=== PATIENT | female | born 1935 | race Caucasian/White ===

== ENCOUNTER 2016-08-04 10:01 | Inpatient (IN) ==
--- NOTE | 2016-08-04 10:14 | Emergency Department Note ---
Disposition Clinical Impression: Confusion, Frail elderly, History of intracranial hemorrhage, HTN (hypertension ), CAD (coronary artery disease), CVA (cerebral vascular accident), Cerebrovascular disease, Abnormal EKG, Diabetes Disposition: Admitted As Inpatient Referrals: Hayes Gupta MD [Primary Care Provider] - General Adult HPI - General Chief complaint: ED Neuro Symptoms/Deficit Stated complaint: L SIDED WEAKNESS Time Seen by Provider: 08/04/16 10:08 Source: EMS Limitations: no limitations - History of Present Illness HPI Narrative: 80-year-old female reports emergency department via EMS, per the family members the patient was doing fine this morning up until about 8 AM, the family noticed the patient walked into another room and came back and she seems somewhat confused was unsteady in her gait and complained of visual problems. EMS was notified, and her symptoms seemed to resolve on EMS arrival. They report the patient was mentally clear and appeared to be doing well. En route the patient developed slurred speech and then had left upper extremity weakness which reportedly resolved as well. There are reports of a headache. The patient has a history of intracranial bleeding, this was about one year ago, she had another event after she was placed on aspirin so they had discontinue antiplatelet therapy. The patient has a history of true fibrillation and coronary artery disease There is no history of fall or seizure-like activity. Accu-Chek was 159. No chest pain or shortness of breath no abdominal pain vomiting or diarrhea. There is no history of antecedent concern. The patient was reportedly in her usual of health prior to the event. The patient does have a history of intracranial bleeding. Per EMS, the patient's mental status is usually normative at baseline. Pain Scale: 0 - Related Data Home Medications Medication Instructions Recorded Confirmed Amlodipine Besylate/Benazepril 1 each PO DAILY 01/04/15 01/04/15 [Lotrel 10-20 mg Capsule] Atenolol [Tenormin] 50 mg PO DAILY 01/04/15 01/04/15 Calcium Carbonate/Vitamin D3 1 each PO DAILY 01/04/15 01/04/15 [Calcium 500-Vit D3 400 Tablet] Celecoxib [Celebrex] 200 mg PO DAILY 01/04/15 01/04/15 Multivits,Ca,Minerals/Iron/FA 1 each PO DAILY 01/04/15 01/04/15 [Women's Daily Formula Caplet] Rosuvastatin [Crestor] 10 mg PO HS 01/04/15 01/04/15 Allergies Allergy/AdvReac Type Severity Reaction Status Date / Time No Known Allergies Allergy Verified 08/04/16 10:03 All systems ED: reviewed and negative except as stated. Past Medical History - Past Medical History Medical history: Reports: arthritis, cancer, coronary artery disease, CVA, diabetes, hyperlipidemia, hypertension, myocardial infarction, osteoporosis, other Surgical history: Reports: breast surgery Psychiatric history: Reports: no psych history MORNING NEWS ANCHOR history: Reports: no MORNING NEWS ANCHOR history - Social History Smoking Status: Never smoker Smokeless Tobacco Status: No Alcohol use: Reports: none Drug use: Reports: none Physical Exam - General Limitations: no limitations General appearance: alert, in no apparent distress - Head Head exam: atraumatic, normocephalic, normal inspection - Eye Eye exam: Present: normal appearance, PERRL, EOMI. Absent: scleral icterus, conjunctival injection, miosis, mydriasis - ENT ENT exam: normal exam, normal oropharynx, mucous membranes moist, TM's normal bilaterally, normal external ear exam - Neck Neck exam: Present: normal inspection, full ROM, trachea midline. Absent: tenderness - Chest Chest inspection: Present: normal inspection, symmetric chest wall rise. Absent : tenderness - Respiratory Respiratory exam: Present: normal lung sounds bilaterally, respiratory distress. Absent: wheezes - Cardiovascular Cardiovascular exam: Present: regular rate, normal rhythm, normal heart sounds - Abdominal Exam Abdominal exam: Present: soft, Non-Tender, normal bowel sounds. Absent: tenderness, distention, guarding, rebound, rigidity - Extremities Exam Extremities exam: Present: normal inspection, full ROM, normal capillary refill. Absent: tenderness, pedal edema, joint swelling, calf tenderness - Expanded Lower Extremity Exam Neurovascular/Tendon exam: Present: normal capillary refill. Absent: motor deficit, sensory deficit, tendon deficit, extremity cold to touch, pallor - Back Exam Back exam: Present: normal inspection, full ROM. Absent: tenderness, CVA tenderness (L), vertebral tenderness - Neurological Exam Neurological exam: Present: alert, CN II-XII intact, other (The patient is alert but seems to be slightly confused. She is able to follow basic commands. She answers basic questions as well.). Absent: motor sensory deficit - Psychiatric Psychiatric exam: Present: normal affect, normal mood - Skin Skin exam: Present: warm, dry, intact, normal color. Absent: rash, cyanosis, diaphoresis, erythema, pallor, mottled, other Course - Reevaluation(s) Reevaluation #1: A stroke alert was initiated. [facility] was notified. Reevaluation #2: Tele-stroke conferencing with Dr. Ram, [facility], minor ischemic stroke, no TPA, admit, MRI, manage at this facility vs [facility]/no difference in management, Family comfortable with plan as stay at [facility]. Reevaluation #3: I spoke with the [facility] neurologist on-call Dr. Luna, who will act as digital media sales consultant, and recommended medical admission with low-dose baby aspirin. Vital Signs Temperature 98.6 F 08/04/16 10:04 Pulse Rate 65 08/04/16 10:04 Respiratory Rate 18 08/04/16 10:04 Blood Pressure 131/92 08/04/16 10:04 O2 Sat by Pulse Oximetry 98 08/04/16 10:04 Temperature 98.6 F 08/04/16 10:04 Pulse Rate 65 08/04/16 10:04 Respiratory Rate 18 08/04/16 10:04 Blood Pressure 131/92 08/04/16 10:04 O2 Sat by Pulse Oximetry 98 08/04/16 10:04 Oxygen Delivery Oxygen Delivery Room Air Medical Decision Making - MDM Narrative Medical decision making narrative: The patient seems to have had recurrent neurologic symptoms this morning. In the ED she had some left visual field defects, her CT head was negative, [facility] was consulted, Dr. Ram, feels the patient has had a minor stroke, the neurologist recommendations were for admission and MRI, here versus [facility], no aggressive therapy, the patient and family are fine staying here. No TPA or other aggressive therapy is recommended. I spoke with our neurologist here Dr. Luna who will act as digital media sales consultant, I consulted with our hospitalist on-call Dr. Aguirre who is accepted the patient to their care. The patient has a history of intracranial hemorrhage from anticoagulation the past, I reviewed this with our neurologist, low-dose aspirin was recommended, 81 mg, this was ordered. The patient is currently stable pending admission to the hospital. Family members agreeable with plan. - Lab Data Lab results reviewed: Yes I reviewed the patient's lab results. Result diagrams: 08/04/16 10:00 08/04/16 10:00 Lab Results 08/04/16 08/04/16 08/04/16 Range/Units 10:00 10:00 10:00 WBC 7.2 (4.3-11.1) K/mcL RBC 4.72 (3.82-4.97) M/mcL Hgb 13.8 (11.5-15.4) g/dL Hct 41.6 (35.3-44.9) % MCV 88.1 (83.0-100.0) fL MCH 29.2 (28.0-33.3) pg MCHC 33.2 (31.6-35.5) g/dL RDW 12.4 (11.5-14.5) % Plt Count 151 (140-400) K/mcL MPV 10.7 (9.4-12.4) fL Immature Gran % 0.3 (0-4) % Seg Neutrophils % 58.6 % Lymphocytes % 26.2 % Monocytes % 9.7 % Eosinophils % 4.2 % Basophils % 1.0 % Neutrophils # 4.2 (1.6-8.9) K/mcL Lymphocytes # 1.9 (0.6-4.6) K/mcL Monocytes # 0.7 (0.0-1.3) K/mcL Eosinophils # 0.3 (0.0-0.6) K/mcL Basophils # 0.1 (0.0-0.2) K/mcL PT 11.3 (9.4-12.1) Seconds INR 1.0 APTT 32.2 (26.0-36.0) Seconds Sodium 137 (136-145) mEq/L Potassium 4.4 (3.5-4.5) mEq/L Chloride 103 (98-109) mEq/L Carbon Dioxide 24 (19-29) mEq/L BUN 12 (7-20) mg/dL Creatinine 0.89 (0.57-1.11) mg/dL Est GFR ( Amer) > 60 (> 60) Est GFR (Non-Af Amer) > 60 (> 60) BUN/Creatinine Ratio 13 (6-26) Glucose 162 H (70-99) mg/dL Calculated Osmolality 287 (280-300) Lactic Acid (0.5-2.2) mmol/L Calcium 10.0 (8.6-10.8) mg/dL Total Bilirubin 0.6 (0.2-1.2) mg/dL Direct Bilirubin 0.2 (0.0-0.5) mg/dL Indirect Bilirubin 0.4 (0.0-1.2) mg/dL AST 19 (5-34) Units/L ALT 18 (0-55) Units/L Alkaline Phosphatase 59 (38-126) Units/L Troponin I (0-0.03) ng/mL C-Reactive Protein 3 (Less than 5) mg/L Serum Total Protein 7.8 (6.0-8.3) g/dL Albumin 4.0 (3.5-5.0) g/dL Globulin 3.8 H (2.4-3.5) g/dL Albumin/Globulin Ratio 1.1 (1.1-2.2) 08/04/16 08/04/16 Range/Units 10:00 10:57 WBC (4.3-11.1) K/mcL RBC (3.82-4.97) M/mcL Hgb (11.5-15.4) g/dL Hct (35.3-44.9) % MCV (83.0-100.0) fL MCH (28.0-33.3) pg MCHC (31.6-35.5) g/dL RDW (11.5-14.5) % Plt Count (140-400) K/mcL MPV (9.4-12.4) fL Immature Gran % (0-4) % Seg Neutrophils % % Lymphocytes % % Monocytes % % Eosinophils % % Basophils % % Neutrophils # (1.6-8.9) K/mcL Lymphocytes # (0.6-4.6) K/mcL Monocytes # (0.0-1.3) K/mcL Eosinophils # (0.0-0.6) K/mcL Basophils # (0.0-0.2) K/mcL PT (9.4-12.1) Seconds INR APTT (26.0-36.0) Seconds Sodium (136-145) mEq/L Potassium (3.5-4.5) mEq/L Chloride (98-109) mEq/L Carbon Dioxide (19-29) mEq/L BUN (7-20) mg/dL Creatinine (0.57-1.11) mg/dL Est GFR ( Amer) (> 60) Est GFR (Non-Af Amer) (> 60) BUN/Creatinine Ratio (6-26) Glucose (70-99) mg/dL Calculated Osmolality (280-300) Lactic Acid 1.5 (0.5-2.2) mmol/L Calcium (8.6-10.8) mg/dL Total Bilirubin (0.2-1.2) mg/dL Direct Bilirubin (0.0-0.5) mg/dL Indirect Bilirubin (0.0-1.2) mg/dL AST (5-34) Units/L ALT (0-55) Units/L Alkaline Phosphatase (38-126) Units/L Troponin I 0.00 (0-0.03) ng/mL C-Reactive Protein (Less than 5) mg/L Serum Total Protein (6.0-8.3) g/dL Albumin (3.5-5.0) g/dL Globulin (2.4-3.5) g/dL Albumin/Globulin Ratio (1.1-2.2) - Radiology Data Radiology results reviewed: Yes I reviewed the patient's radiology results.
[2016-08-04 10:20] LABS: Basophils # 0.1 K/mcL (0.0-0.2); Eosinophils # 0.3 K/mcL (0.0-0.6); Eosinophils % 4.2 %; Hematocrit 41.6 % (35.3-44.9); Hemoglobin 13.8 g/dL (11.5-15.4); Immature Granulocytes % 0.3 % (0-4); Lymphocytes # 1.9 K/mcL (0.6-4.6); Lymphocytes % 26.2 %; Mean Corpuscular HGB Conc 33.2 g/dL (31.6-35.5); Mean Corpuscular Hemoglobin 29.2 pg (28.0-33.3); Mean Corpuscular Volume 88.1 fL (83.0-100.0); Mean Platelet Volume 10.7 fL (9.4-12.4); Monocytes # 0.7 K/mcL (0.0-1.3); Monocytes % 9.7 %; Neutrophils # 4.2 K/mcL (1.6-8.9); Platelet Count 151 K/mcL (140-400); Red Blood Count 4.72 M/mcL (3.82-4.97); Red Cell Distribution Width 12.4 % (11.5-14.5); Segmented Neutrophils % 58.6 %
[2016-08-04 10:27] LABS: Activated Partial Thrombo Time 32.2 Seconds (26.0-36.0)
[2016-08-04 10:31] LABS: Prothrombin Time 11.3 Seconds (9.4-12.1)
[2016-08-04 10:34] LABS: Alanine Aminotransferase 18 Units/L (0-55); Albumin/Globulin Ratio 1.1 (1.1-2.2); Alkaline Phosphatase 59 Units/L (38-126); Aspartate Amino Transferase 19 Units/L (5-34); BUN/Creatinine Ratio 13 (6-26); Bilirubin,Direct 0.2 mg/dL (0.0-0.5); Bilirubin,Indirect 0.4 mg/dL (0.0-1.2); Bilirubin,Total 0.6 mg/dL (0.2-1.2); Blood Urea Nitrogen 12 mg/dL (7-20); Carbon Dioxide 24 mEq/L (19-29); Chloride 103 mEq/L (98-109); Globulin 3.8 g/dL (2.4-3.5); Glucose 162 mg/dL (70-99); Osmolality,Calculated 287 (280-300); Potassium 4.4 mEq/L (3.5-4.5); Sodium 137 mEq/L (136-145); Total Protein 7.8 g/dL (6.0-8.3); eGFR For African Americans > 60 (> 60); eGFR For Non-African Americans > 60 (> 60)
[2016-08-04 10:57] LABS: C-Reactive Protein 3 mg/L (Less than 5)
[2016-08-04] MEDS ORDERED: Aspirin 325 MG TABLET PO ONE (11:01)
[2016-08-04] MEDS ORDERED: Acetaminophen 325 MG TABLET PO PRN (11:09)
[2016-08-04] MEDS ORDERED: Naloxone 0.4 MG/ML INJ IVP PRN (11:09)
[2016-08-04 11:46] LABS: Bilirubin,Urine Negative (Negative); Blood,Urine Negative (Negative); Clarity,Urine Clear (Clear); Color,Urine Yellow (Yellow); Glucose,Urine (UA) Normal (Normal); Ketones,Urine Negative (Negative); Leukocyte Esterase,Urine Negative (Negative); Nitrite,Urine Negative (Negative); PH,Urine 7.5 pH Units (5.0-8.0); Protein,Urine Negative (Neg-Trace); Specific Gravity,Urine 1.008 (1.010-1.025); Urobilinogen,Urine Normal (Normal)
[2016-08-04] MEDS ORDERED: Aspirin 81 MG TAB.CHEW ONE (11:55)
--- NOTE | 2016-08-04 13:56 | Neurology - Consult Note ---
Date of Encounter: 08/04/16 Time of Encounter: 13:50 Assessment and Plan (1) CVA (cerebral vascular accident) Current Visit: Yes Status: Acute 80-year old woman with Afib, with prior 2 hemorrhagic bleed, not on anticoagulation, not on aspirin, with new onset headache, left hemianopsia, left -sided weakness (resolving), with likely right posterior circulation stroke, with involvement of visual pathways. ASA was offered, but family did not want to use it. Transfer to [facility] was offered, but declined by the patient. MRI brain for completeness and to stratify if patient may benefit from ASA 81. Expectant management for now. Will follow the results. Rest of the issues per hospitalist. Qualifiers: Qualified Code(s): I63.9 - Cerebral infarction, unspecified History of Present Illness Chief complaint: left sided weakness HPI: Ms. Liao is a 80 year old female with prior history of 2 hemorrhagic strokes, ischemic TIAs, atrial fibrillation (not on anticoagulation, not on aspirin, due to hemorrhage risk), who was found to have acute onset of headache near the right jewish, visual difficulties, difficulty with coordination that started earlier in the morning. The daughter noticed that these symptoms were similar to prior stroke and brought to ER here. Telestroke consult was made with [facility], who told her that although she is within the window for treatment, tPA would not be a good choice, and aspirin may be more appropriate. But the family did not want to give aspirin, or tPA and did not want to go to [facility]. The daughters now say that her deficits are getting better, her arms are getting stronger, but the vision has not gotten better. Pt denies chest pain, shortness of breath. She has new onset headache over the right jewish. States that she is getting better, she can tell. No fevers, no chills. history of shingles in 2015. MRI was ordered from the ER and is awaited. Past Med Surg Social Fam HX - Past Medical History Medical history: arthritis, atrial fibrillation, cancer, coronary artery disease , CVA, diabetes, hyperlipidemia, hypertension, myocardial infarction, osteoporosis, other Psychiatric history: no psych history - Past Surgical History Surgical History: breast surgery - Social History Smoking Status: Never smoker Smokeless Tobacco Status: No Alcohol use: none Drug use: none - Family History Mother Hx Family Cardiac Disorders: Yes (open heart) Hx Family Endocrine Disorder: Yes (DM) Medications and Allergies Atenolol [Tenormin] 50 mg PO DAILY 01/04/15 [History] Acetaminophen w/Cod 300-30 mg [Tylenol w/Codeine #3] 1 each PO Q6H PRN 08/04/16 [History] Benazepril HCl [Lotensin] 20 mg PO DAILY 08/04/16 [History] LORazepam [Ativan] 0.5 mg PO BID 08/04/16 [History] Rosuvastatin Calcium [Crestor] 10 mg PO HS 08/04/16 [History] amLODIPine [Norvasc] 10 mg PO DAILY 08/04/16 [History] Allergies No Known Allergies Allergy (Verified 08/04/16 13:04) All Systems: A 10-system review of systems was performed and is negative for pertinent findings except as documented above in the HPI. - Constitutional Constitutional ROS IM: headache(s) (new onset, right jewish), no chills Physical Examination - Vital Signs Vital Signs: Initial Vital Signs Temp Pulse Resp BP Pulse Ox 98.6 F 65 18 131/92 98 08/04/16 10:04 08/04/16 10:04 08/04/16 10:04 08/04/16 10:04 08/04/16 10:04 Vital Signs - 24 hr 08/04/16 10:04 08/04/16 10:05 08/04/16 10:20 Temperature 98.6 F Pulse Rate 65 66 62 Respiratory Rate 18 18 18 Blood Pressure 131/92 131/92 123/60 O2 Sat by Pulse Oximetry 98 100 100 08/04/16 10:30 08/04/16 10:40 08/04/16 11:45 Temperature Pulse Rate 67 72 60 Respiratory Rate 20 18 18 Blood Pressure 127/58 117/60 132/77 O2 Sat by Pulse Oximetry 100 100 99 08/04/16 13:07 Temperature Pulse Rate Respiratory Rate 18 Blood Pressure 132/77 O2 Sat by Pulse Oximetry - Constitutional General appearance: other (thin build) - Neurologic Sensorimotor examination: pronator drift (None), hemiparesis (mild, left lower leg) Detailed motor examination: grossly full strength in all extremities (but has left leg drift (unclear baseline). Resolved left arm drift.) Motor examination - right side: 5/5: deltoids (appropriate for age and condition ), biceps, triceps, wrist flexion, wrist extension, image archivist, hip flexors, tibialis Anterior, quadriceps, toe extension (EHL), plantarflexion Motor examination - left side: 06/26: hip flexors, quadriceps, tibialis Anterior, toe extension (EHL), plantarflexion (neuropathic feet bilaterally), 07/26: deltoids, biceps, triceps, wrist flexion, wrist extension, image archivist Detailed sensory examination: light touch (distally decreased), vibration ( distally decreased) Reflex and gait examination: other (not performed) Reflexes: Biceps: 1+, Triceps: 1+, Brachioradialis: 1+, Patella: 1+, Achilles: 1 + Mental Status Examination: awake, alert, oriented to person, oriented to place, oriented to time, follows commands appropriately, answers questions appropriately, no agnosia, no aphasia, no aproxia, lucid Cranial nerve examination: PERRL, EOMI, visual salvador intact (left hemianopsia) , corneal reflexes brisk symmetrically, sensory to face intact, mastication intact, no facial asymmetry is present, no dysarthria, hearing is intact symmetrically (decreased hearing bilaterally), soft palate elevates bilaterally upon phonation, gag reflex intact, flexes SCM and trapezius muscles symmetrically with full power, tongue protrudes midline, no atrophy or facial fasiculations present Cranial Nerve Exam: hearing decreased: Right (bilateral hearing loss) Fundoscopic: papilledema: Bilateral (None) Cerebellar examination: no dysmetria (but slow), performs finger to nose and heel to quijano symmetrically without ataxia Results - Laboratory Findings CBC and BMP: 08/04/16 10:00 08/04/16 10:00 Abnormal lab findings: Abnormal lab results Glucose 162 mg/dL (70-99) H 08/04/16 10:00 Globulin 3.8 g/dL (2.4-3.5) H 08/04/16 10:00 Ur Specific Foster 1.008 (1.010-1.025) L 08/04/16 11:35 - Diagnostic Findings Additional findings: Head CT 08/04/16 10:08 IMPRESSION: 1. Global atrophy with mild-moderate diffuse chronic small vessel ischemic disease. Remote bilateral occipital infarcts. 2. There is no CT evidence of an acute infarct. No acute intracranial hemorrhage or global mass effect. The results were called by Dr. Vance Geiger MD to Toni Tracey on 08/04/2016 at 10:24. D/ / 08/04/2016 10:27:28 Vance Geiger MD / yash Interpreting Provider: Vance Geiger MD Chest X-Ray 08/04/16 10:10 IMPRESSION: No acute cardiopulmonary process. D/ / 08/04/2016 11:05:58 Reginald Lemus MD / sergio Interpreting Provider: Reginald Lemus MD Consult Discharge Plan - Plan Referrals: Hayes Gupta MD [Primary Care Provider] -
[2016-08-04] MEDS ORDERED: *HR* Acetaminophen w/Cod 300-30 mg 1 TAB TABLET PO PRN ×2 (15:48→21:37)
--- NOTE | 2016-08-04 15:53 | Internal Med History&Physical ---
Date of Encounter: 08/04/16 Time of Encounter: 15:50 Assessment and Plan (1) CVA (cerebral vascular accident) Current visit: No Status: Acute Patient had right posterior circulation stroke causing left homonymous hemianopia. Family was advised to avoid anticoagulation as well as antiplatelet medications. Will continue holding to further evaluation by MRI of the brain. Await neurology input in that regard. For now will hold all blood pressure medications, and allow for permissive hypertension. Check echocardiogram, carotid Doppler. Physical therapy occupational therapy speech therapy and social worker palliative care will see the patient. I have advised the family as well as the patient to avoid driving until otherwise cleared by her neurologist. Patient is full code Qualifiers: CVA mechanism: embolism Precerebral and cerebral artery: unspecified precerebral artery Qualified Code(s): I63.10 - Cerebral infarction due to embolism of unspecified precerebral artery (2) HTN (hypertension) Current visit: Yes Status: Chronic Hold all blood pressure medications and allow for permissive hypertension Qualifiers: Qualified Code(s): I10 - Essential (primary) hypertension (3) Atrial flutter Current visit: No Status: Acute Patient is not many anticoagulant medications or antiplatelet medications because of prior hemorrhagic events. Qualifiers: Atrial flutter type: typical Qualified Code(s): I48.3 - Typical atrial flutter Internal Medicine - H&P: HPI Chief complaint: headache, field defect History of present illness: Ms. Liao is a 80 year old female with multiple medical problems including atrial fibrillation/flutter not on anticoagulation because of prior hemorrhagic strokes, not on aspirin or anticoagulation, presents to the emergency room today with main complain of headache and visual field defect. This morning patient started noticing headache in the right temporal area. Daughter noticed that the patient is wobbly. She was noted by the paramedics to have left-sided weakness which has resolved. She was noted to have left homonymous hemianopia. She is unable to see left side of her visual field. Patient had no similar field defect at baseline. She drives a car and had no problems with accidents. Neurology service have evaluated the patient. CT scan performed in the emergency room showed no evidence of intracranial bleed. Awaiting MRI results. Family was advised to avoid aspirin before because of prior hemorrhagic events. Past Med Surg Social Fam HX - Past Medical History Medical history: arthritis, atrial fibrillation, cancer, coronary artery disease , CVA, diabetes, hyperlipidemia, hypertension, myocardial infarction, osteoporosis, other Psychiatric history: no psych history - Past Surgical History Surgical History: breast surgery - Social History Smoking Status: Never smoker Smokeless Tobacco Status: No Alcohol use: none Drug use: none - Family History Mother Hx Family Cardiac Disorders: Yes (open heart) Hx Family Endocrine Disorder: Yes (DM) Internal Medicine - H&P: Meds Atenolol [Tenormin] 50 mg PO DAILY 01/04/15 [History] Acetaminophen w/Cod 300-30 mg [Tylenol w/Codeine #3] 0.5 each PO Q6H PRN [History] Benazepril HCl [Lotensin] 20 mg PO DAILY 08/04/16 [History] LORazepam [Ativan] 0.5 mg PO BID PRN 08/04/16 [History] Rosuvastatin Calcium [Crestor] 10 mg PO HS 08/04/16 [History] amLODIPine [Norvasc] 10 mg PO DAILY 08/04/16 [History] Allergies No Known Allergies Allergy (Verified 08/04/16 13:04) All Systems PM: A 10-system review of systems was performed and is negative for pertinent findings except as documented above in the HPI. Review of systems: 10 point ROS is negative except for HPI. - Constitutional Vitals: Temp Pulse Resp BP Pulse Ox 97.7 F 71 16 121/74 97 08/04/16 14:33 08/04/16 14:33 08/04/16 14:33 08/04/16 14:33 08/04/16 14:33 Exam: Gen.: patient is alert oriented times 3 nontender distress. Camryn: normal S1 S2 no additional sounds chest: clear auscultation abdomen: soft nontender nondistended lower extremity: lacks confidence Lexi: I do not appreciate focal motor deficits. Patient has left homonymous hemianopia Internal Med - H&P Results - Labs CBC & Chem 7: 08/04/16 10:00 08/04/16 10:00
[2016-08-04] MEDS: *HR* LORazepam 0.5 MG TABLET PO PRN (20:24)
[2016-08-05 04:30] LABS: Basophils # 0.1 K/mcL (0.0-0.2); Basophils % 0.5 %; Eosinophils # 0.1 K/mcL (0.0-0.6); Eosinophils % 0.5 %; Hematocrit 38.8 % (35.3-44.9); Hemoglobin 13.3 g/dL (11.5-15.4); Immature Granulocytes % 0.4 % (0-4); Lymphocytes # 2.2 K/mcL (0.6-4.6); Lymphocytes % 21.7 %; Mean Corpuscular HGB Conc 34.3 g/dL (31.6-35.5); Mean Corpuscular Volume 87.4 fL (83.0-100.0); Mean Platelet Volume 11.3 fL (9.4-12.4); Monocytes # 0.8 K/mcL (0.0-1.3); Monocytes % 7.8 %; Neutrophils # 7.1 K/mcL (1.6-8.9); Platelet Count 142 K/mcL (140-400); Red Blood Count 4.44 M/mcL (3.82-4.97); Red Cell Distribution Width 12.6 % (11.5-14.5); Segmented Neutrophils % 69.1 %
[2016-08-05 04:44] LABS: BUN/Creatinine Ratio 14 (6-26); Blood Urea Nitrogen 12 mg/dL (7-20); Calcium 9.2 mg/dL (8.6-10.8); Carbon Dioxide 21 mEq/L (19-29); Chloride 103 mEq/L (98-109); Chol/HDL Ratio 2.9 (0-4.9); Cholesterol 114 mg/dL (< 200); Glucose 154 mg/dL (70-99); HDL Cholesterol 39 mg/dL (40-59); LDL Cholesterol,Calculated 53 mg/dL (0-99); Osmolality,Calculated 283 (280-300); Potassium 3.9 mEq/L (3.5-4.5); Sodium 135 mEq/L (136-145); Triglycerides 111 mg/dL (< 150); eGFR For African Americans > 60 (> 60); eGFR For Non-African Americans > 60 (> 60)
--- NOTE | 2016-08-05 10:22 | ECHO - Doppler Report ---
Echo with Saline Contrast Name: Simin Liao Date of Study: 08/05/2016 Date: 1935 Ht: 59.0 in Medical Record#: [id number] Age: 80 Wt: 108.0 lb Gender: Female BSA: 1.42 Order #: [id number] Location: [facility] Room #: [id number] Reading Physician: Ingrid Downing DO Warp Scouring Vat Tender: Thelma Squires Ordering Physician: Brady Michelle MD Primary Physician: Hayes Gupta MD Indications: Cerebrovascular Accident Impressions: LVEF 55%. Normal left ventricular size and systolic function with regional variations. There is evidence of moderate diastolic dysfunction of the left ventricle. Normal right ventricular size and function. Mild mitral regurgitation. Mild pulmonic regurgitation. No pulmonary hypertension. There is no evidence of a PFO with agitated saline contrast. Left Ventricular Wall Motion: Rest Echo Findings The mid inferior, basal inferior, mid inferior septal and basal inferior septal tejada were hypokinetic. All other wall segments showed normal motion. Findings: Study Quality * Technically adequate exam. ECG Findings * Normal sinus rhythm with PACS. Aortic Valve * No aortic regurgitation. * Trileaflet aortic valve. * No aortic stenosis. * Mildly calcified aortic valve leaflets. Mitral Valve * Mild mitral regurgitation. * Normal mitral valve structure. * No mitral stenosis. Tricuspid Valve * Tricuspid valve not well visualized. * Trace tricuspid regurgitation. * Estimated RA pressure is 3 mmHg. * Estimated RVSP is 18 mmHg. * No pulmonary hypertension. Pulmonic Valve * Pulmonic valve is not well visualized. * No pulmonic stenosis. * Mild pulmonic regurgitation. Pulmonary Artery * Pulmonary artery not well visualized. Left Ventricle * Normal LV chamber size, wall thickness and function. * Moderate left ventricular diastolic dysfunction. * LVEF 55%. Right Ventricle * Normal right ventricular structure and function. Left Atrium * Normal left atrial size. Right Atrium * Normal right atrial size. Pericardium * There is no pericardial effusion present. Aorta * Not well visualized. Interatrial Septum * No evidence of PFO with agitated saline contrast. * No evidence of PFO by color Doppler. IVC * The IVC is not dilated. History Hypertension Hypercholesteremia Family History of CAD Myocardial Infarction 01/05/15 a Previous Echo was performed. Contrast: Agitated saline 20 ml. Measurements: BP: 102/ 68 2D Normal Values RVIDd: 2.50 cm <2.7 cm IVSd: 1.00 cm 0.6 - 1.0 cm LVIDd: 4.00 cm 3.7 - 5.6 cm LVPWd: 1.10 cm 0.6 - 1.1 cm LVIDs: 3.10 cm 1.5 - 3.6 cm AO: 2.30 cm < 4.0 cm LA: 2.90 cm 2.0 - 4.0cm %FS: 22.50 cm >25 % LA volume: 15 Mitral Valve Peak E:.54 m/sec Peak A:.48 m/sec E/A Ratio:1.1 Peak E' Lat Adonay:6.73 cm/s Peak E' Med Adonay:3.61 cm/s E/E' Lat Ratio:8 E/E' Med Ratio:14.9 Tricuspid Valve TV Regurg Peak Grad: 15.00mmHg TV Regurg Peak Adonay: 1.95m/sec Updated by Ingrid Downing on 08/05/2016 10:17:08 AM electronically signed on 08/05/2016 10:17:43 AM with status of Final Wall Motion Parra: 1=Normal, 2=Hypokinesis, 3=Akinesis, 4=Dyskinesis, 5=Aneurysmal, 6=Hyperkinetic, X=Not Visualized (Blank)=Missing
[2016-08-05] MEDS: *HR* Acetaminophen w/Cod 300-30 mg 1 TAB TABLET PO PRN ×2 (13:53→20:38)
--- NOTE | 2016-08-05 15:40 | Neurology Progress Note ---
Date of Encounter: 08/05/16 Time of Encounter: 15:36 Assessment and Plan (1) CVA (cerebral vascular accident) Current Visit: Yes Status: Acute This is likely embolic event, secondary to chronic atrial fibrillation not on anticoagulation therapy due to previous cerebral hemorrhage while on Xarelto. it was also mentioned that when the xarelto was discontinued and switched to aspirin she had 'extended cerebral hemorrhage' therefore she has not been taking even Aspirin. Due to her previous history of cerebral hemorrhage while on Xarelto, which was not traumatic, would not recommend anticoagulation therapy. However, small aspirin may be considered, may be in delayed fashion (one week from onset of CVA , since the size of the stroke is substantial) for CVA prevention. I discussed treatment plan with family members and they would like to consult with their significant other for the decision. If patient decides to start Aspirin 81mg daily then it should be started one week from now, if neurological condition remains stable. Any changes in her neurological condition would obviously require a CT of head without contrast to rule out intracranial hemorrhage. Please call if any questions Qualifiers: Qualified Code(s): I63.9 - Cerebral infarction, unspecified Subjective Principal diagnosis: CVA Interval history: Patient seen and examined. 80 year old with PMH significant for atrial fibrillation, not on Xarelto or aspirin due to hemorrhagic, non-traumatic cerebral hemorrhage during who developed acute onset of visual difficulty without any significant focal weakness. MRI of brain showed: MR/MR head/brain wo con IMPRESSION: Acute right MCA territory infarction involving the right temporal lobe, right parietal lobe and the right insula cortex. Suspected occluded M2 segment of the right MCA along the right sylvian fissure, which likely responsible for the acute right MCA territory infarction. Old infarctions in the left occipital lobe, and mildly in the posterior right parietal and right occipital lobes. Tiny old infarctions in the left cerebellar hemisphere and bilateral thalami. Mild parenchymal volume loss. Moderate chronic microvascular disease. Currently, the patient is awake and alert and denies significant discomforts. Objective - Constitutional Vitals: Temp Pulse Resp BP Pulse Ox 98.1 F 98 16 117/70 97 08/05/16 13:07 08/05/16 13:07 08/05/16 13:07 08/05/16 13:07 08/05/16 11:37 - Neurological Exam Sensorimotor examination: Present: pronator drift (None), hemiparesis (mild, left lower leg) Motor Examination: Present: grossly full strength in all extremities (but has left leg drift (unclear baseline). 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 Sensation intact: Present: light touch (distally decreased), vibration ( distally decreased) Reflex and gait examination: other (not performed) Mental Status Examination: Present: awake, alert, oriented to person, oriented to place, oriented to time, follows commands appropriately, answers questions appropriately, no agnosia, no aphasia, no aproxia, lucid Cranial nerve examination: Present: PERRL, EOMI, visual salvador intact (left hemianopsia), corneal reflexes brisk symmetrically, sensory to face intact, mastication intact, no facial asymmetry is present, no dysarthria, hearing is intact symmetrically (decreased hearing bilaterally), soft palate elevates bilaterally upon phonation, gag reflex intact, flexes SCM and trapezius muscles symmetrically with full power, tongue protrudes midline, no atrophy or facial fasiculations present Cranial Nerve Exam: hearing decreased: Right (bilateral hearing loss) Cerebellar examination: Present: no dysmetria (but slow), performs finger to nose and heel to quijano symmetrically without ataxia - VTE Documentation of Mechanical Device: Intermittent pneumatic compression device Results - Laboratory Findings CBC and BMP: 08/05/16 03:33 08/05/16 03:33 Abnormal lab findings: Abnormal lab results Sodium 135 mEq/L (136-145) L 08/05/16 03:33 Glucose 154 mg/dL (70-99) H 08/05/16 03:33 POC Glucose 154 (58-89) H 08/04/16 10:04 Globulin 3.8 g/dL (2.4-3.5) H 08/04/16 10:00 HDL Cholesterol 39 mg/dL (40-59) L 08/05/16 03:33 Ur Specific [place] 1.008 (1.010-1.025) L 08/04/16 11:35 Consult Discharge Plan - Plan Referrals: Hayes Gupta MD [Primary Care Provider] - 08/14/16 1:20 pm (Please folllow up as schedule..)
--- NOTE | 2016-08-05 15:40 | Electrocardiograph Report ---
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
--- NOTE | 2016-08-05 17:41 | Internal Med Progress Note ---
Date of Encounter: 08/05/16 Time of Encounter: 17:39 - Assessment and plan (1) CVA (cerebral vascular accident) Current Visit: Yes Status: Acute Assessment and plan: mri revealed acute stroke, seen and exmained, neurology recommnedaiotns noted. no ac in light of history in IC bleeding. No aspirin as per history, as per neuro might not be unreasonable to start asa in a week. continue current management. resume betablockers. d/w patient and her family. echo noted. Qualifiers: Qualified Code(s): I63.9 - Cerebral infarction, unspecified (2) History of intracranial hemorrhage Current Visit: Yes Status: Acute (3) HTN (hypertension) Current Visit: Yes Status: Chronic Qualifiers: Qualified Code(s): I10 - Essential (primary) hypertension (4) Atrial flutter Current Visit: No Status: Acute Qualifiers: Atrial flutter type: typical Qualified Code(s): I48.3 - Typical atrial flutter (5) DVT prophylaxis Current Visit: No Status: Acute - Subjective Interval history: 1st encounter with the patient, complains of headaches, family members at bedside. - Constitutional Vitals: Temp Pulse Resp BP Pulse Ox 98.4 F 117 17 136/77 95 08/05/16 16:55 08/05/16 16:55 08/05/16 16:55 08/05/16 16:55 08/05/16 15:58 General appearance: Present: cooperative, A&O X 3 Exam: hypoacusia - Head Head exam: Present: atraumatic, normocephalic - Eye Eye exam: Present: PERRL, conjuntiva pink, sclera anicteric Pupils: Present: PERRL - Neck Neck exam general surgery: Present: supple, trachea midline. Absent: lymphadenopathy - Respiratory Respiratory exam: Present: CTAB. Absent: accessory muscle use, rales, rhonchi, wheezes - Cardiovascular Cardiovascular exam: Present: RRR, +S1, +S2. Absent: diastolic murmur, gallop, rubs, systolic murmur - GI/Abdominal GI/Abdominal exam: Present: normal bowel sounds, soft, no peritoneal signs. Absent: distended, tenderness - Extremities Exam Extremities exam: Present: warm, radial pulses palpable and symetrical. Absent : calf tenderness, cyanotic, pedal edema - Neurological Exam Neurological exam: Present: CN II-XII intact, oriented X3, no focal deficits. Absent: pronater drift, facial droop, speech deficit - Skin Skin exam: Present: dry, intact Internal Medicine: Result - Labs CBC & Chem 7: 08/05/16 03:33 08/05/16 03:33 Labs: Short CBC 08/05/16 Range/Units 03:33 WBC 10.2 (4.3-11.1) K/mcL Hgb 13.3 (11.5-15.4) g/dL Hct 38.8 (35.3-44.9) % Plt Count 142 (140-400) K/mcL Neutrophils # 7.1 (1.6-8.9) K/mcL BMP 08/05/16 03:33 Sodium 135 L Potassium 3.9 Chloride 103 Carbon Dioxide 21 BUN 12 Creatinine 0.83 Glucose 154 H Calcium 9.2 - ABG Interpretation ABG results: PT/INR, D-dimer PT 11.3 Seconds (9.4-12.1) 08/04/16 10:00 - VTE Documentation of Mechanical Device: Intermittent pneumatic compression device Consult Discharge Plan - Plan Referrals: Hayes Gupta MD [Primary Care Provider] - 08/14/16 1:20 pm (Please folllow up as schedule..)
[2016-08-05] MEDS: *HR* LORazepam 0.5 MG TABLET PO PRN (20:39)
[2016-08-06 05:23] LABS: Basophils # 0.1 K/mcL (0.0-0.2); Basophils % 0.6 %; Eosinophils # 0.2 K/mcL (0.0-0.6); Eosinophils % 2.5 %; Hematocrit 38.5 % (35.3-44.9); Hemoglobin 12.9 g/dL (11.5-15.4); Immature Granulocytes % 0.2 % (0-4); Lymphocytes # 2.2 K/mcL (0.6-4.6); Lymphocytes % 26.2 %; Mean Corpuscular HGB Conc 33.5 g/dL (31.6-35.5); Mean Corpuscular Hemoglobin 29.4 pg (28.0-33.3); Mean Corpuscular Volume 87.7 fL (83.0-100.0); Mean Platelet Volume 10.7 fL (9.4-12.4); Neutrophils # 4.9 K/mcL (1.6-8.9); Platelet Count 137 K/mcL (140-400); Red Blood Count 4.39 M/mcL (3.82-4.97); Red Cell Distribution Width 12.6 % (11.5-14.5); Segmented Neutrophils % 58.5 %
[2016-08-06 05:37] LABS: BUN/Creatinine Ratio 16 (6-26); Blood Urea Nitrogen 12 mg/dL (7-20); Carbon Dioxide 22 mEq/L (19-29); Chloride 101 mEq/L (98-109); Glucose 140 mg/dL (70-99); Osmolality,Calculated 278 (280-300); Potassium 3.9 mEq/L (3.5-4.5); Sodium 133 mEq/L (136-145); eGFR For African Americans > 60 (> 60); eGFR For Non-African Americans > 60 (> 60)
[2016-08-06] MEDS ORDERED: amLODIPine 5 MG TABLET PO SCH (09:00)
[2016-08-06 10:32] VITALS: BP 109/52
[2016-08-06 11:54] LABS: C-Reactive Protein 4 mg/L (Less than 5)
--- NOTE | 2016-08-06 16:05 | Discharge Summary ---
Date of Encounter: 08/06/16 Time of Encounter: 16:00 - Discharge Diagnosis (1) CVA (cerebral vascular accident) Priority: Primary Status: Acute Qualifiers: Qualified Code(s): I63.9 - Cerebral infarction, unspecified (2) History of intracranial hemorrhage Priority: Secondary Status: Acute (3) HTN (hypertension) Priority: Secondary Status: Chronic Qualifiers: Qualified Code(s): I10 - Essential (primary) hypertension (4) Atrial flutter Priority: Secondary Status: Acute Qualifiers: Atrial flutter type: typical Qualified Code(s): I48.3 - Typical atrial flutter (5) DVT prophylaxis Priority: Secondary Status: Acute - Discharge Medications Home Medications: Atenolol [Tenormin] 50 mg PO DAILY 01/04/15 [History] Acetaminophen w/Cod 300-30 mg [Tylenol w/Codeine #3] 0.5 each PO Q6H PRN [History] Benazepril HCl [Lotensin] 20 mg PO DAILY 08/04/16 [History] LORazepam [Ativan] 0.5 mg PO BID PRN 08/04/16 [History] Rosuvastatin Calcium [Crestor] 10 mg PO HS 08/04/16 [History] amLODIPine [Norvasc] 10 mg PO DAILY 08/04/16 [History] Allergies/Adverse Reactions: Allergies No Known Allergies Allergy (Verified 08/04/16 13:04) Procedures/tests Complete & Pending: Procedures Performed prior 72 hours Category Date Time Status EV carotid duplex imaging BI Routine Y 08/05/16 15:44 Completed EV echocardiogram Routine Y 08/05/16 15:44 Completed Date of admission: 08/04/16 15:44 Primary care physician: Hayes Gupta MD Discharging clinician: Wild Reyes Anticipated date of discharge: 08/06/16 - Patient Status Disposition: Home, Self-Care Condition: Fair Functional capacity at discharge: independent ambulation Overall status at discharge: patient is back to baseline - Discharge Instructions Follow Up With: Hayes Gupta MD [Primary Care Provider] - 08/14/16 1:20 pm (Please folllow up as schedule..) Forms: ED Satisfaction Letter Additional Instructions: Neurology follow up. - Diet and Activity Activity: increase activity as tolerated Diet: advance to your usual diet Interval History: Ms. Liao is a 80 year old female with multiple medical problems including atrial fibrillation/flutter not on anticoagulation because of prior hemorrhagic strokes, not on aspirin or anticoagulation, presents to the emergency room today with main complain of headache and visual field defect. This morning patient started noticing headache in the right temporal area. Daughter noticed that the patient is wobbly. She was noted by the paramedics to have left-sided weakness which has resolved. She was noted to have left homonymous hemianopia. She is unable to see left side of her visual field. Patient had no similar field defect at baseline. She drives a car and had no problems with accidents. Neurology service have evaluated the patient. CT scan performed in the emergency room showed no evidence of intracranial bleed. Awaiting MRI results. Family was advised to avoid aspirin before because of prior hemorrhagic events. Hospital course: Ms. Liao is a 80 year old female admitted due to acute stroke as noted in the brain mri. This is likely embolic event, secondary to chronic atrial fibrillation not on anticoagulation therapy due to previous cerebral hemorrhage while on Xarelto. it was also mentioned that when the xarelto was discontinued and switched to aspirin she had 'extended cerebral hemorrhage' therefore she has not been taking even Aspirin. Due to her previous history of cerebral hemorrhage while on Xarelto, which was not traumatic, would not recommend anticoagulation therapy. Neurology recommended to consider aspirin, ptient and family declined asa and understood risks and benfits. Patient will follow up with cardiology as outpatient, would recommend a cardiology eval as well. D/W family and patient. - Time Spent with Patient Total time spent providing and/or coordinating discharge services: - Constitutional Vitals: Temp Pulse Resp BP Pulse Ox 98.1 F 66 13 109/52 95 08/06/16 12:08 08/06/16 12:08 08/06/16 12:08 08/06/16 12:08 08/06/16 10:29 General appearance: Present: cooperative, A&O X 3 - Head Head exam: Present: atraumatic, normocephalic - Eye Eye exam: Present: PERRL, conjuntiva pink, sclera anicteric Pupils: Present: PERRL - Neck Neck exam general surgery: Present: supple, trachea midline. Absent: lymphadenopathy - Respiratory Respiratory exam: Present: CTAB. Absent: accessory muscle use, rales, rhonchi, wheezes - Cardiovascular Cardiovascular exam: Present: RRR, +S1, +S2. Absent: diastolic murmur, gallop, rubs, systolic murmur - GI/Abdominal GI/Abdominal exam: Present: normal bowel sounds, soft, no peritoneal signs. Absent: distended, tenderness - Extremities Exam Extremities exam: Present: warm, radial pulses palpable and symetrical. Absent : calf tenderness, cyanotic, pedal edema - Neurological Exam Neurological exam: Present: CN II-XII intact, oriented X3, no focal deficits. Absent: pronater drift, facial droop, speech deficit - Skin Skin exam: Present: dry, intact - VTE Documentation of Mechanical Device: Intermittent pneumatic compression device
--- NOTE | 2016-08-06 20:14 | Carotid Imaging Report ---
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 The right internal carotid artery has no significant stenosis. The left carotid artery has minimal plaque throughout. Recommendations: Risk factor reduction. Follow-up carotid duplex in 1 year. After imaging the patient returned to their room. Findings Carotid Duplex: Right: The right proximal common carotid artery has a PSV of 57 cm/s and a EDV of 7 cm/s. The right mid common carotid artery has a PSV of 55 cm/s and a EDV of 10 cm/s. The right distal common carotid artery has a PSV of 54 cm/s and a EDV of 10 cm/s. There is 40-59% stenosis in the right bifurcation with a PSV of 165 cm/s and a EDV of 13 cm/s. There is smooth heterogeneous plaque. The right proximal internal carotid artery has a PSV of 76 cm/s and a EDV of 16 cm/s. The right mid internal carotid artery has a PSV of 86 cm/s and a EDV of 22 cm/s. The right distal internal carotid artery has a PSV of 76 cm/s and a EDV of 20 cm/s. There is nonstenotic plaque in the right eca with a PSV of 145 cm/s and a EDV of 7 cm/s. There is smooth heterogeneous plaque. The right vertebral artery has a PSV of 35 cm/s and a EDV of 6 cm/s. Left: The left proximal common carotid artery has a PSV of 70 cm/s and a EDV of 11 cm/s. The left mid common carotid artery has a PSV of 63 cm/s and a EDV of 14 cm/s. The left distal common carotid artery has a PSV of 59 cm/s and a EDV of 13 cm/s. There is nonstenotic plaque in the left bifurcation with a PSV of 91 cm/s and a EDV of 23 cm/s. There is smooth heterogeneous plaque. The left proximal internal carotid artery has a PSV of 86 cm/s and a EDV of 15 cm/s. The left mid internal carotid artery has a PSV of 94 cm/s and a EDV of 12 cm/s. The left distal internal carotid artery has a PSV of 70 cm/s and a EDV of 17 cm/s. There is nonstenotic plaque in the left eca with a PSV of 120 cm/s and a EDV of 11 cm/s. There is smooth heterogeneous plaque. The left vertebral artery has a PSV of 56 cm/s and a EDV of 11 cm/s. Carotid Results Right PSV EDV Assessment Proximal CCA 57 7 Mid CCA 55 10 Distal CCA 54 10 Bifurcation 165 13 Proximal ICA 76 16 Mid ICA 86 22 Distal ICA 76 20 ECA 145 7 Vertebral Artery 35 6 Left PSV EDV Assessment Proximal CCA 70 11 Mid CCA 63 14 Distal CCA 59 13 Bifurcation 91 23 Proximal ICA 86 15 Mid ICA 94 12 Distal ICA 70 17 ECA 120 11 Vertebral Artery 56 11 Ratio's Right ICA/CCA Ratio: 1.60 ICA/CCA Values: 86/55 Left ICA/CCA Ratio: 1.50 ICA/CCA Values: 94/63 Updated by Adriel Chu MD on 08/06/2016 8:08:28 PM electronically signed on 08/06/2016 8:08:50 PM with status of Final
== END 2016-08-06 16:50 | disposition home or self-care (01) | DRG 65 ==
LOC: EMEROO 10:01 → 2ANU 10:01
PROVIDERS: ADMIT Internal Medicine; ATTEND Internal Medicine